=== PATIENT | male | born 1990 | race Caucasian/White ===

== ENCOUNTER 2018-06-26 18:25 | Emergency (ER) | payer MEDICAID, OTHER ==
[~2018-06-26] VITALS: Ht 180.3 cm; Wt 72.6 kg
[2018-06-26 18:39] VITALS: BP 136/69
[2018-06-26] MEDS ORDERED: cefTRIAXone SOD 1,000 MG VL IM ONE (21:00)
[2018-06-26] MEDS ORDERED: methylPREDNISolone SOD SUCC 125 MG/2 ML VL IM ONE (21:00)
[2018-06-26] MEDS ORDERED: TETANUS-DIPTH-ACEL PERTUSSIS 0.5ML SYRG IM ONE (21:00)
== END 2018-06-26 22:22 | disposition home or self-care (01) ==
LOC: ER 18:25
DX: M25.441 Effusion, right hand (principal); T88.1XXA Other complications following immunization, not elsewhere classified, initial encounter
CPT/HCPCS: 73200; 90471; 90715; 96372; 99284; J0696; J2930

== ENCOUNTER 2019-02-09 20:00 | Emergency (ER) | payer MEDICAID ==
[~2019-02-09] VITALS: Ht 180.3 cm; Wt 72.6 kg
== END 2019-02-09 22:25 ==
LOC: ER 20:05
DX: Z04.89 Encounter for examination and observation for other specified reasons (principal); F17.210 Nicotine dependence, cigarettes, uncomplicated

== ENCOUNTER 2021-08-18 19:20 | Emergency (ER) | payer SELFPAY ==
[~2021-08-18] VITALS: Ht 180.3 cm; Wt 71.2 kg
[2021-08-18 19:23] VITALS: BP 105/74
== END 2021-08-18 19:22 | disposition left against medical advice (07) ==
LOC: ER 19:20
DX: S61.452A Open bite of left hand, initial encounter (principal); Z53.21 Procedure and treatment not carried out due to patient leaving prior to being seen by health care provider; W57.XXXA Bitten or stung by nonvenomous insect and other nonvenomous arthropods, initial encounter; Y93.89 Activity, other specified; Y92.89 Other specified places as the place of occurrence of the external cause; Y99.8 Other external cause status

== ENCOUNTER 2021-09-08 10:40 | Emergency (ER) | payer SELFPAY ==
[~2021-09-08] VITALS: Ht 182.9 cm; Wt 74.8 kg
[2021-09-08 11:21] VITALS: BP 136/80
[2021-09-08] MEDS ORDERED: TETANUS-DIPTH-ACEL PERTUSSIS 0.5ML SYR Tdap IM ONE ×2 (11:30→11:33)
[2021-09-08] MEDS ORDERED: METR500T PO (11:38)
[2021-09-08] MEDS ORDERED: SULF400T11 PO (11:38)
== END 2021-09-08 11:50 | disposition home or self-care (01) ==
LOC: ER 10:40
DX: S91.332A Puncture wound without foreign body, left foot, initial encounter (principal); F17.210 Nicotine dependence, cigarettes, uncomplicated; Z79.899 Other long term (current) drug therapy; W45.0XXA Nail entering through skin, initial encounter; Y93.89 Activity, other specified; Y92.89 Other specified places as the place of occurrence of the external cause; Y99.8 Other external cause status
CPT/HCPCS: 90471; 90715

== ENCOUNTER 2021-09-09 20:29 | Emergency (ER) | payer SELFPAY ==
[~2021-09-09] VITALS: Ht 180.3 cm; Wt 74.8 kg
[~2021-09-09 20:29] MED LIST: METR500T PO; SULF400T11 PO
[2021-09-09] MEDS ORDERED: VANCOMYCIN 1GM/250ML 250 ML IV ONE (21:00)
[2021-09-09 22:00] LABS: Basophils # (auto) 0.1 10 ^3/uL (0-0.2); Basophils % (auto) 0.4 % (0.0-2.0); Eosinophils # (auto) 0.2 10 ^3/uL (0-0.8); Eosinophils % (auto) 1.3 % (0.0-7.0); Hematocrit 43.6 % (41.0-53.0); Hemoglobin 14.9 g/dL (13.5-17.5); Lymphocytes % (auto) 6.4 % (10.0-50.0); Mean Corpuscular Hemoglobin 29.8 pg (28.0-32.0); Mean Corpuscular Hgb Conc. 34.1 g/dL (32.0-36.0); Mean Corpuscular Volume 87.5 fL (80.0-100.0); Monocytes # (auto) 1.3 10 ^3/uL (0-1.3); Monocytes % (auto) 8.3 % (0.0-12.0); Neutrophils # (auto) 13.3 10 ^3/uL (1.6-8.6); Neutrophils % (auto) 83.6 % (37.0-80.0); Nucleated Red Blood Cells % 0.1 %; Red Blood Cells 4.98 10^6/uL (4.5-5.90); Red Cell Distribution Width 13.7 % (11.8-14.3); White Blood Cell 15.9 10^3/uL (4.4-10.8)
[2021-09-09 22:21] LABS: Albumin 3.6 g/dL (3.4-5.0); Calcium 8.8 mg/dL (8.5-10.1)
[2021-09-09 22:24] LABS: BUN/Creatinine Ratio 11.4; Bilirubin, Total 0.6 mg/dL (0.2-1.0); Total Protein 7.3 g/dL (6.4-8.2)
[2021-09-10 03:56] VITALS: BP 117/71
== END 2021-09-10 04:01 | disposition left against medical advice (07) ==
LOC: ER 20:43
DX: L02.511 Cutaneous abscess of right hand (principal); F17.210 Nicotine dependence, cigarettes, uncomplicated; F12.10 Cannabis abuse, uncomplicated; Z59.00 Homelessness unspecified; Z53.29 Procedure and treatment not carried out because of patient's decision for other reasons
CPT/HCPCS: 36415; 73100; 80053; 85025; 87040; 87077; 87205; 96365; 99284; J3370

== ENCOUNTER 2021-09-10 14:47 | Emergency (ER) | payer SELFPAY ==
[~2021-09-10] VITALS: Ht 180.3 cm; Wt 74.8 kg
[2021-09-10 14:47] VITALS: BP 104/60
== END 2021-09-10 16:33 | disposition home or self-care (01) ==
LOC: ER 14:47
DX: L03.113 Cellulitis of right upper limb (principal); F17.210 Nicotine dependence, cigarettes, uncomplicated; F12.10 Cannabis abuse, uncomplicated; Z59.00 Homelessness unspecified

== ENCOUNTER 2022-12-11 01:13 | Emergency (ER) | payer MEDICAID, OTHER ==
[~2022-12-11] VITALS: Ht 180.3 cm; Wt 75.1 kg
[2022-12-11] MEDS ORDERED: cefTRIAXone SOD 1,000 MG VL IM ONE (03:45)
[2022-12-11] MEDS ORDERED: CEPH500C PO (03:52)
[2022-12-11] MEDS ORDERED: IBUP-1456 PO (03:52)
[2022-12-11] MEDS ORDERED: CLIN300C70 PO (03:52)
[2022-12-11 03:56] VITALS: BP 132/76; PULSE 75; RESP 18; TEMP 98.5; O2SAT 97
== END 2022-12-11 04:55 | disposition home or self-care (01) ==
LOC: ER 01:13
DX: L03.012 Cellulitis of left finger (principal)
CPT/HCPCS: 73140; 96372; 99283; J0696

== ENCOUNTER 2023-09-09 21:43 | Emergency (ER) | payer OTHER ==
[~2023-09-09] VITALS: Ht 182.9 cm; Wt 84.7 kg
[~2023-09-09 21:43] MED LIST changes: +CEPH500C PO; +CLIN1CAP70 PO; +IBUP-1456 PO
[2023-09-09 22:10] VITALS: BP 130/92; PULSE 97; RESP 18; O2SAT 97
[2023-09-10] MEDS ORDERED: AMOX875T4 PO (03:22)
== END 2023-09-10 03:29 | disposition home or self-care (01) ==
LOC: ER 21:43
DX: T16.1XXA Foreign body in right ear, initial encounter (principal); F12.10 Cannabis abuse, uncomplicated; W22.8XXA Striking against or struck by other objects, initial encounter; Y93.89 Activity, other specified; Y92.89 Other specified places as the place of occurrence of the external cause; Y99.8 Other external cause status
CPT/HCPCS: 69210